=== PATIENT | male | born 1970 | race Caucasian/White ===

== ENCOUNTER 2022-12-07 13:55 | Emergency (ER) | payer OTHER ==
[2022-12-07 14:11] VITALS: TEMP 98.3; BMI 21.2
[2022-12-07] MEDS ORDERED: SODIUM CHLORIDE 1,000 ML IV STA ×2 (14:12→15:47)
[2022-12-07] MEDS ORDERED: FOLIC ACID 1 MG TABLET (FP) PO ONE (14:12)
[2022-12-07] MEDS ORDERED: THIAMINE HCL 200 MG/2 ML VIAL IVPB ONE (14:12)
[2022-12-07] MEDS ORDERED: THIAMINE HCL 200 MG/2 ML VIAL ONE (14:23)
[2022-12-07 14:52] LABS: HEMATOCRIT 47.6 % (35.4-49); HEMOGLOBIN 16.8 G/dL (11.7-16.9); MCH 33.2 pg (25.7-33.7); MCHC 35.2 g/dl (32.0-35.9); MEAN CELL VOLUME 94.2 fl (80-96); PLATELET COUNT 314.4 10^3/uL (134-434); RBC 5.05 10^6/uL (4.00-5.60); RDW 13.1 % (11.9-15.9); WHITE BLOOD COUNT 7.3 10^3/uL (4.0-10.8)
[2022-12-07 15:01] LABS: ALBUMIN 4.8 g/dl (3.4-5.0); BILIRUBIN,TOTAL 0.7 mg/dl (0.2-1); CREATININE 0.8 mg/dl (0.55-1.3); MAGNESIUM 2.2 mg/dL (1.8-2.4); PLATELET ESTIMATE ADEQUATE; TOT PROT 8.7 g/dl (6.4-8.2)
[2022-12-07 15:10] VITALS: BP 146/96; RESP 18
[2022-12-07 17:07] VITALS: PULSE 101
== END 2022-12-07 16:55 | disposition home or self-care (01) ==
LOC: FER 13:55
PROC: 3E033GC Introduction of Other Therapeutic Substance into Peripheral Vein, Percutaneous Approach (ICD-10-PCS; principal; 2022-12-07)
PROC: 3E0337Z Introduction of Electrolytic and Water Balance Substance into Peripheral Vein, Percutaneous Approach (ICD-10-PCS; 2022-12-07)
PROC: 3E0337Z Introduction of Electrolytic and Water Balance Substance into Peripheral Vein, Percutaneous Approach (ICD-10-PCS; 2022-12-07)
DX: F10.920 Alcohol use, unspecified with intoxication, uncomplicated (principal)
CPT/HCPCS: 36415; 70450-TC; 80053; 80307; 83735; 84484; 85025; 93005; 99285-25